=== PATIENT | male | born 1955 | race Caucasian/White ===

== ENCOUNTER → 2018-04-14 | Outpatient (CLI) | payer BC ==
--- NOTE | 2018-04-14 10:45 | Diagnostic Imaging Report ---
Exam: Left knee radiographs-3 views History: Left knee pain. Comparison: None. Findings: No evidence of acute fracture or malalignment. Small suprapatellar joint effusion. There are mild medial compartment predominant tricompartmental degenerative changes with joint space narrowing. 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 Small suprapatellar joint effusion. Signed by: Dr. Aide Fischer MD on 04/14/2018 10:41 AM
== END ==
LOC: RAD 09:55
PROVIDERS: ATTEND Family Medicine
DX: M25.562 Pain in left knee (principal)

== ENCOUNTER → 2019-08-09 | Outpatient (CLI) | payer BC ==
--- NOTE | 2019-08-09 16:41 | Diagnostic Imaging Report ---
EXAM: SHOULDER LEFT COMPLETE DATE: 08/09/2019 4:07 PM INDICATION: Left shoulder pain COMPARISON: None FINDINGS: Internal and external rotation views were obtained of the left shoulder. There is no evidence for acute fracture or dislocation. Bony mineralization is within normal limits. No focal lytic or blastic abnormality is identified. The glenohumeral joint and AC joint are unremarkable. The surrounding soft tissues are unremarkable without evidence for radiopaque foreign body. The visualized left hemithorax is unremarkable. IMPRESSION: No acute radiographic abnormality identified within the left shoulder. Signed by: Dr. Jose L Gautam MD on 08/09/2019 4:38 PM
== END ==
LOC: RAD 15:57
PROVIDERS: ATTEND Family Medicine
DX: M25.512 Pain in left shoulder (principal)

== ENCOUNTER → 2019-09-20 | Outpatient (CLI) | payer BC ==
[~2019-09-20] MED LIST: GADOBENATE DIMEGLUMINE 1 ML IV ONE; IOPAMIDOL 300 MG/ML 15ML VIAL IT ONE
--- NOTE | 2019-09-20 13:45 | Diagnostic Imaging Report ---
MRI of the left shoulder with contrast. History: Shoulder pain. Labral tear. Decreased range of motion. Pain not responding to conservative management Comparison: Radiographs 08/09/2019 Technique: Multiplanar multisequence MRI of the shoulder after the administration of intra-articular gadolinium contrast material. Findings: Rotator cuff: Mild rotator cuff tendinosis without tear, muscle atrophy or retraction. Osseous acromion complex: Type II acromion with mild lateral downsloping. Mild degenerative arthrosis at the acromioclavicular joint with undersurface spurring and narrowing of the supraspinatus tendon outlet. Mild subacromial/subdeltoid bursitis Glenohumeral joint: Degeneration and fraying of the labrum without displaced tear or adjacent cyst. The articular cartilage surfaces are slightly thin. The humeral head is well-seated in the glenoid fossa. Gadolinium contrast material is seen filling the glenohumeral joint. Biceps tendon: Mild intra-articular biceps tendinosis with fraying at the biceps anchor. Other findings: Negative for muscle degeneration or osseous fracture. Impression: Mild rotator cuff tendinosis without tear, muscle atrophy or retraction. Mild degenerative arthrosis at the acromioclavicular joint with undersurface spurring and narrowing of the supraspinatus tendon outlet. Mild subacromial/subdeltoid bursitis. Mild degenerative arthrosis of the glenohumeral joint with degeneration and fraying of the labrum. Mild intra-articular biceps tendinosis with fraying at the biceps anchor. Signed by: Dr. Sincere Pantoja M.D. on 09/20/2019 1:42 PM
--- NOTE | 2019-09-20 14:41 | Diagnostic Imaging Report ---
EXAM: INJECTION ARTHROGRAM SHOULDER, FLURO GUIDE NEEDLE PLCMNT/INJ DATE: 09/20/2019 11:30 AM INDICATION: Left shoulder pain COMPARISON: None Physician performing procedure: Dr. Dixon Hussein PROCEDURES PERFORMED: Fluoroscopically-guided left glenohumeral arthrogram with MRI to follow Fluoro time: 0.6 minutes Dose: 2.3mGy Anesthesia: Local, 1% lidocaine Devices: 22 gauge BD Quincke needle PROCEDURE REPORT: After written and verbal consent were obtained, the patient was placed supine on the fluoroscopy table with left shoulder in external rotation. Using fluoroscopic guidance, sterile technique and local anesthesia, a 22 gauge, 3.5 inch needle was inserted percutaneously into the left glenohumeral joint . Proper placement was confirmed by injecting Isovue 300 into the joint under fluoroscopy. Next, 10cc of a 1:100 mixture of Multihance with Isovue 300 were then injected. Complications: None Blood loss: Minimal Samples: None Patient disposition: MRI in stable condition. IMPRESSION: Uncomplicated fluoroscopically-guided left glenohumeral joint arthrogram with MRI to follow. Contrast is within the joint. See MRI report for full findings. Signed by: Dixon Hussein MD on 09/20/2019 2:37 PM
== END ==
LOC: DX 11:20
PROVIDERS: ATTEND Specialist
DX: S43.432A Superior glenoid labrum lesion of left shoulder, initial encounter (principal)
CPT/HCPCS: 23350; 73222; 77002; A9577; Q9967

== ENCOUNTER 2019-10-09 16:10 | Outpatient (RCR) | payer BC | END 2019-10-16 | LOC: PT 16:10 | PROVIDERS: ATTEND Specialist | DX: M75.42 Impingement syndrome of left shoulder (principal); M25.512 Pain in left shoulder; M25.612 Stiffness of left shoulder, not elsewhere classified; M62.81 Muscle weakness (generalized) ==

== ENCOUNTER → 2019-11-15 | Outpatient (RCR) | payer BC | LOC: PT 10-18 14:39 | PROVIDERS: ATTEND Specialist | DX: M75.42 Impingement syndrome of left shoulder (principal); M62.81 Muscle weakness (generalized); M25.512 Pain in left shoulder; M25.612 Stiffness of left shoulder, not elsewhere classified | CPT/HCPCS: 97139 ==

== ENCOUNTER 2019-11-22 16:00 | Outpatient (RCR) | payer BC ==
[2019-12-05] MEDS ORDERED: GLIPIZIDE ER5 MG PO (09:56)
[2019-12-05] MEDS ORDERED: ALEVE220 MG PO (09:57)
[2019-12-05] MEDS ORDERED: METFORMIN HCL500 MG PO (09:57)
[2019-12-05] MEDS ORDERED: GLUCOSAMINE &1 EACH PO (09:57)
[2019-12-05] MEDS ORDERED: LOSARTAN POTAS100 MG PO (09:57)
[2019-12-05] MEDS ORDERED: CO Q-10400 MG PO (09:58)
[2019-12-05] MEDS ORDERED: CRESTOR10 MG PO (09:58)
[2019-12-05] MEDS ORDERED: JANUVIA100 MG PO (09:58)
[2019-12-20] MEDS ORDERED: METOPROLOL SUCC25 MG PO (10:30)
== END 2019-12-16 ==
LOC: PT 16:00
PROVIDERS: ATTEND Specialist
DX: M75.42 Impingement syndrome of left shoulder (principal); M62.81 Muscle weakness (generalized); M25.512 Pain in left shoulder; M25.612 Stiffness of left shoulder, not elsewhere classified
CPT/HCPCS: 97139

== ENCOUNTER → 2019-12-20 | Day surgery (SDC) | payer BC, OTHER ==
[~2019-12-20] MED LIST changes: +ALEVE220 MG PO; +CEFAZOLIN SOD 1 GM/NS 50ML 100 ML IV ONE; +CO Q-10400 MG PO; +CRESTOR10 MG PO; +DEXAMETHASONE SOD PHOS INJ 4 MG/ML VIAL ONE; +EPINEPHRINE 1 MG/ML 30ML VIAL ONE; +FENTANYL CITRATE/PF 100MCG/2 ML INJ ONE; -GADOBENATE DIMEGLUMINE 1 ML IV ONE; +GLIPIZIDE ER5 MG PO; +GLUCOSAMINE &1 EACH PO; +GLYCOPYRROLATE INJ 0.2 MG/ML VIAL ONE; +HYDROCODONE/APAP 5MG-325MG TAB ONE; +HYDROMORPHONE 1MG/1ML INJ ONE; -IOPAMIDOL 300 MG/ML 15ML VIAL IT ONE; +JANUVIA100 MG PO; +LABETALOL HCL 5 MG/ML 20ML VIAL ONE; +LIDOCAINE 2%/ EPINEPHRINE 20ML MDV ONE; +LIDOCAINE HCL 2% LOCAL INJ 5 ML SDV VIAL INJ ONE; +LOSARTAN POTAS100 MG PO; +METFORMIN HCL500 MG PO; +METOPROLOL SUCC25 MG PO; +METOPROLOL TARTRATE INJ 1 MG/ML VIAL ONE; +MIDAZOLAM HCL 2 MG/2 ML VIAL ONE; +NEOSTIGMINE 1 MG/ML 10ML VIAL ONE; +ONDANSETRON HCL INJ 2MG/ML 2ML 2 MG/ML VIAL ONE; +PROPOFOL IV EMULSION 10 MG/ML 20 ML VIAL ONE; +ROCURONIUM BROMIDE 10 MG/ML 5ML VIAL IV ONE; +ROPIVACAINE 0.5% 5 MG/ML 30 ML SDV ONE; +SEVOFLURANE INHAL SOLN 250 ML PEN BTL ONE
[2019-12-20 15:55] VITALS: BP 155/93
== END | disposition home or self-care (01) ==
LOC: OR 09:36
PROVIDERS: ATTEND Specialist
DX: M75.112 Incomplete rotator cuff tear or rupture of left shoulder, not specified as traumatic (principal); M19.012 Primary osteoarthritis, left shoulder; M75.52 Bursitis of left shoulder; M24.612 Ankylosis, left shoulder; M65.812 Other synovitis and tenosynovitis, left shoulder; G47.33 Obstructive sleep apnea (adult) (pediatric); I44.0 Atrioventricular block, first degree; I10 Essential (primary) hypertension; E78.5 Hyperlipidemia, unspecified; E11.9 Type 2 diabetes mellitus without complications; Z01.812 Encounter for preprocedural laboratory examination; Z11.59 Encounter for screening for other viral diseases; Z79.84 Long term (current) use of oral hypoglycemic drugs; Z68.30 Body mass index [BMI] 30.0-30.9, adult
CPT/HCPCS: 29824; 29826; 36415; 82948; J0690; J1100; J1170; J2001; J2405; J2704; J2710; J3010; J3490; U0002; J2250; J2795

== ENCOUNTER 2020-01-10 14:32 | Outpatient (RCR) | payer BC ==
[~2020-01-10 14:32] MED LIST changes: -CEFAZOLIN SOD 1 GM/NS 50ML 100 ML IV ONE; -DEXAMETHASONE SOD PHOS INJ 4 MG/ML VIAL ONE; -EPINEPHRINE 1 MG/ML 30ML VIAL ONE; -FENTANYL CITRATE/PF 100MCG/2 ML INJ ONE; -GLYCOPYRROLATE INJ 0.2 MG/ML VIAL ONE; -HYDROCODONE/APAP 5MG-325MG TAB ONE; -HYDROMORPHONE 1MG/1ML INJ ONE; -LABETALOL HCL 5 MG/ML 20ML VIAL ONE; -LIDOCAINE 2%/ EPINEPHRINE 20ML MDV ONE; -LIDOCAINE HCL 2% LOCAL INJ 5 ML SDV VIAL INJ ONE; -METOPROLOL TARTRATE INJ 1 MG/ML VIAL ONE; -MIDAZOLAM HCL 2 MG/2 ML VIAL ONE; -NEOSTIGMINE 1 MG/ML 10ML VIAL ONE; -ONDANSETRON HCL INJ 2MG/ML 2ML 2 MG/ML VIAL ONE; -PROPOFOL IV EMULSION 10 MG/ML 20 ML VIAL ONE; -ROCURONIUM BROMIDE 10 MG/ML 5ML VIAL IV ONE; -ROPIVACAINE 0.5% 5 MG/ML 30 ML SDV ONE; -SEVOFLURANE INHAL SOLN 250 ML PEN BTL ONE
== END 2020-01-15 ==
LOC: OT 14:32
PROVIDERS: ATTEND Specialist
DX: M75.02 Adhesive capsulitis of left shoulder (principal); M25.512 Pain in left shoulder; M25.612 Stiffness of left shoulder, not elsewhere classified; R53.1 Weakness

== ENCOUNTER 2020-01-31 14:55 | Outpatient (RCR) | payer BC | END 2020-02-15 | LOC: OT 14:55 | PROVIDERS: ATTEND Specialist | DX: M75.02 Adhesive capsulitis of left shoulder (principal); M25.512 Pain in left shoulder; M25.612 Stiffness of left shoulder, not elsewhere classified; R53.1 Weakness ==